=== PATIENT | female | born 2000 ===

== ENCOUNTER 2023-09-23 12:36 | Emergency (ER) | payer MEDICAID ==
[~2023-09-23] VITALS: Ht 154.9 cm; Wt 155.0 kg
[2023-09-23] MEDS: DexAMETHasone SOD PHOS 10MG/1ML VIAL INJ IM ONE (15:00)
[2023-09-23] MEDS: ALBUTEROL SULF 2.5 MG/0.5ML(0.5%) NEB SOLN NEB ONE (15:09)
[2023-09-23] MEDS: IPRATROPIUM BROM 0.5 MG/2.5ML INH SOL NEB ONE (15:09)
[2023-09-23] MEDS ORDERED: ALBUAER3 IN (15:32)
[2023-09-23] MEDS ORDERED: PRED20TA2 PO (15:32)
[2023-09-23] MEDS ORDERED: BENZ100C97 PO (15:32)
[2023-09-23 15:35] VITALS: PULSE 83; RESP 16; TEMP 98.9; O2SAT 94
[2023-09-23 15:41] VITALS: BP 111/79
[2023-09-23] MEDS ORDERED: ALBU0.084 NEB (16:04)
== END 2023-09-23 15:57 | disposition home or self-care (01) ==
LOC: ER 12:36
DX: J45.901 Unspecified asthma with (acute) exacerbation (principal)
CPT/HCPCS: 71045; 93005; 94640; 99283; J7644